=== PATIENT | female | born 1995 | race Caucasian/White ===

== ENCOUNTER 2019-01-01 00:01 | Emergency (ER) | payer OTHER ==
[2019-01-01] MEDS: LORAZEPAM 1 MG TAB PO (00:36)
== END 2019-01-01 01:53 | disposition home or self-care (01) ==
LOC: FTE 00:01
DX: F41.9 Anxiety disorder, unspecified (principal)
CPT/HCPCS: 71045; 93005; 99284-25

== ENCOUNTER 2019-01-08 22:11 | Emergency (ER) | payer OTHER ==
[2019-01-09] MEDS: LORAZEPAM 1 MG TAB PO (00:10)
[2019-01-09] MEDS: ASPIRIN 325 MG TAB PO (00:11)
== END 2019-01-09 01:38 | disposition home or self-care (01) ==
LOC: FTE 01-09 01:38
DX: F41.9 Anxiety disorder, unspecified (principal)
CPT/HCPCS: 93005; 99283-25

== ENCOUNTER 2019-04-09 21:20 | Emergency (ER) | payer OTHER ==
[2019-04-09 22:33] LABS: URINE BLOOD (Dip) POC Negative (NEGATIVE); URINE GLUCOSE (Dip) POC Negative (NEGATIVE); URINE KETONES (Dip) POC Negative (NEGATIVE); URINE LEUKOCYTE EST (Dip) POC Trace (NEGATIVE); URINE NITRITE (Dip) POC Negative (NEGATIVE); URINE TOTAL PROTEIN POC Negative (NEGATIVE)
[2019-04-09] MEDS: RANITIDINE 150 MG TAB PO (22:35)
[2019-04-09] MEDS: LIDOCAINE/MYLANTA 40 ML BTL PO (22:40)
== END 2019-04-09 23:21 | disposition home or self-care (01) ==
LOC: FTE 21:20
DX: N39.0 Urinary tract infection, site not specified (principal)
CPT/HCPCS: 81003; 81025; 87086; 99283

== ENCOUNTER 2019-05-12 14:11 | Emergency (ER) | payer OTHER ==
[2019-05-12] MEDS: ONDANSETRON 4 MG INJ IV ×2 (16:27→16:34)
[2019-05-12] MEDS: LIDOCAINE/MYLANTA 40 ML BTL PO ×2 (16:28→16:34)
[2019-05-12] MEDS: SOD CHLORIDE 0.9% 1,000 ML IV (16:28)
[2019-05-12] MEDS: KETOROLAC 15 MG INJ IV ×2 (16:28→16:34)
[2019-05-12] MEDS: BELLADONNA/PHENOBARBITAL TAB PO (16:28)
[2019-05-12] MEDS: SOD CHLORIDE 0.9% 100 ML (18:12)
[2019-05-12] MEDS: IOHEXOL 300MG/ML 150 ML BTL (18:12)
== END 2019-05-12 18:55 | disposition home or self-care (01) ==
LOC: FTE 14:11
DX: K62.5 Hemorrhage of anus and rectum (principal); K29.00 Acute gastritis without bleeding; R10.9 Unspecified abdominal pain
CPT/HCPCS: 36415; 74177; 80053; 81001; 81025; 83690; 85025; 93005; 96360; 96361; 99285-25